=== PATIENT | male | born 2000 | race Caucasian/White ===

== ENCOUNTER 2024-02-28 07:16 | Day surgery (SDC) | payer BC ==
[2024-02-26 12:51] VITALS: BMI 21.7
[2024-02-28] MEDS ORDERED: AFRIN NASAL MIST 15 ML BOT ONE (08:20)
[2024-02-28] MEDS ORDERED: Lidocaine 1% PF 5 ML VIAL ONE (08:33)
[2024-02-28] MEDS ORDERED: PROPOFOL 20 ML ONE (08:33)
[2024-02-28] MEDS ORDERED: Lidocaine 1% (PF) 30 ML VIAL ONE (08:58)
[2024-02-28] MEDS ORDERED: EPINEPHrine 1 MG/ML VIAL ONE (08:58)
[2024-02-28] MEDS ORDERED: Bacitracin Zinc Ointment 30 gm TUBE ONE (08:58)
[2024-02-28] MEDS ORDERED: fentaNYL PF 100 MCG/2 ML SYRINGE ONE (09:01)
[2024-02-28] MEDS ORDERED: Rocuronium Bromide 10 MG/ML (10ML VIAL) ONE (09:32)
[2024-02-28] MEDS ORDERED: methylPREDNISolone Acetate 40 mg/ml Vial ONE (09:33)
[2024-02-28] MEDS ORDERED: Dexamethasone 20 MG/5 ML VIAL ONE (09:33)
[2024-02-28] MEDS ORDERED: Dexamethasone 4 mg/ml Vial ONE (09:33)
[2024-02-28] MEDS ORDERED: Ondansetron PF 4 MG/2 ML Vial ONE (09:33)
== END 2024-02-28 13:30 | disposition home or self-care (01) ==
LOC: SDC 07:16
PROVIDERS: ATTEND Otolaryngology Plastic Surgery within the Head & Neck
PROC: 09TS8ZZ Resection of Right Frontal Sinus, Via Natural or Artificial Opening Endoscopic (ICD-10-PCS; principal; 2024-02-28)
PROC: 09TV8ZZ Resection of Left Ethmoid Sinus, Via Natural or Artificial Opening Endoscopic (ICD-10-PCS; principal; 2024-02-28)
PROC: 09TR8ZZ Resection of Left Maxillary Sinus, Via Natural or Artificial Opening Endoscopic (ICD-10-PCS; principal; 2024-02-28)
PROC: 09TU8ZZ Resection of Right Ethmoid Sinus, Via Natural or Artificial Opening Endoscopic (ICD-10-PCS; principal; 2024-02-28)
PROC: 09TT8ZZ Resection of Left Frontal Sinus, Via Natural or Artificial Opening Endoscopic (ICD-10-PCS; principal; 2024-02-28)
PROC: 09BM8ZZ Excision of Nasal Septum, Via Natural or Artificial Opening Endoscopic (ICD-10-PCS; principal; 2024-02-28)
PROC: 09TQ8ZZ Resection of Right Maxillary Sinus, Via Natural or Artificial Opening Endoscopic (ICD-10-PCS; principal; 2024-02-28)
PROC: 09TL8ZZ Resection of Nasal Turbinate, Via Natural or Artificial Opening Endoscopic (ICD-10-PCS; principal; 2024-02-28)
PROC: 09TW8ZZ Resection of Right Sphenoid Sinus, Via Natural or Artificial Opening Endoscopic (ICD-10-PCS; principal; 2024-02-28)
PROC: 09TX8ZZ Resection of Left Sphenoid Sinus, Via Natural or Artificial Opening Endoscopic (ICD-10-PCS; principal; 2024-02-28)
DX: J34.2 Deviated nasal septum (principal); J32.4 Chronic pansinusitis; J34.3 Hypertrophy of nasal turbinates; Z90.49 Acquired absence of other specified parts of digestive tract; Z90.89 Acquired absence of other organs; Z79.899 Other long term (current) drug therapy; Z88.0 Allergy status to penicillin
CPT/HCPCS: J0171; J1030; J1100; J2001; J2405; J2704